=== PATIENT | male | born 1990 | race Caucasian/White ===

== ENCOUNTER 2022-05-15 11:44 | Emergency (ER) | payer OTHER ==
[~2022-05-15] VITALS: Ht 175.3 cm; Wt 90.7 kg
[2022-05-15 11:44] VITALS: BP_SYST 146
--- NOTE | 2022-05-15 11:44 | NUR ---
BROUGHT IMMEDIATELY BACK TO BED #1 AND TRIAGED. REPORT GIVEN TO KEISHA.
--- NOTE | 2022-05-15 11:45 | NUR ---
DR BOWEN AT BEDSIDE FOR EVALUATION
--- NOTE | 2022-05-15 11:58 | NUR ---
RECEIVED PT FROM [facility] NURSE. PT HAS L HAND, PALM AND 5TH DIGIT LACERATION CAUSED BY SKILL SAW. DR. BOWEN AT BEDSIDE. PT IS AAOX4. RESP E/U. VS WNL. PAIN 06/29, WILL BE MEDICATED PER DEC. IV CATH TO [facility]AC AC 2OG IN PLACE.
[2022-05-15] MEDS ORDERED: DIPHTH,PERTUSS(ACELL),TET VAC 0.5 ML VIAL (Tdap) I.M. ONE (12:00)
[2022-05-15] MEDS ORDERED: LIDOCAINE 2%, 20 ML MDV INJ ONE (12:00)
[2022-05-15] MEDS ORDERED: NACL 0.9% 1,000 ML IV ONE (12:00)
[2022-05-15] MEDS ORDERED: MORPHINE 4 MG INJ. 4 MG/ML VIAL IVP ONE ×4 (12:00→15:15)
[2022-05-15] MEDS ORDERED: AMPICILLIN SODIUM/SULBACTAM NA 3 GM VIAL IM ONE (12:00)
--- NOTE | 2022-05-15 12:10 | NUR ---
DR. BOWEN AT BEDSIDE EXAMINING CLEANED WOUND.
--- NOTE | 2022-05-15 12:20 | NUR ---
cxr obtained, morphine ivp give.
[2022-05-15] MEDS ORDERED: AMPICILLIN SODIUM/SULBACTAM NA 3 GM in NS 100 ML IV ONE (13:00)
[2022-05-15] MEDS ORDERED: AMPICILLIN SODIUM/SULBACTAM NA 3 GM VIAL ONE (13:12)
--- NOTE | 2022-05-15 13:21 | NUR ---
MORPHINE SCANNED TWICE BUT ONLY ONE DOSE GIVEN AT 1300.
[2022-05-15 13:49] LABS: BASOPHILS # (AUTO) 0.1 K/uL (0.0-0.2); BASOPHILS % (AUTO) 0.5 % (0.0-2.0); EOSINOPHILS % (AUTO) 0.2 % (0.0-4.0); HEMATOCRIT 40.9 % (36-54); HEMOGLOBIN 14.2 g/dL (14.0-18.0); LYMPHOCYTES # (AUTO) 1.1 K/uL (1.0-5.5); LYMPHOCYTES % (AUTO) 10.1 % (20.5-51.5); MEAN CORPUSCULAR HEMOGLOBIN 32 pg (27-31); MEAN CORPUSCULAR HGB CONC 35 % (32-36); MEAN CORPUSCULAR VOLUME 93 fL (79.0-98.0); MONOCYTES # (AUTO) 0.6 K/uL (0.0-1.0); MONOCYTES % (AUTO) 5.3 % (1.7-9.3); NEUTROPHILS # (AUTO) 9.5 K/uL (1.8-7.7); NEUTROPHILS % (AUTO) 83.9 % (40.0-70.0); PLATELET COUNT (AUTO) 269 K/uL (130-430); RED BLOOD CELL COUNT(AUTO) 4.39 MIL/uL (4.2-6.2); RED CELL DISTRIBUTION WIDTH 14.1 % (9.0-15.0); WHITE BLOOD COUNT (AUTO) 11.3 K/uL (4.8-10.8)
[2022-05-15 14:05] LABS: CALCIUM 8.5 mg/dL (8.4-11.0); CREATININE 0.75 mg/dL (0.55-1.30); POTASSIUM 3.5 mmol/L (3.5-5.1)
[2022-05-15 14:06] LABS: PROTHROMBIN TIME 10.4 SECS (9.5-12.5)
[2022-05-15 14:11] LABS: ALBUMIN 3.8 g/dL (3.4-4.8); TOTAL BILIRUBIN 0.4 mg/dL (0.0-1.0)
--- NOTE | 2022-05-15 14:24 | NUR ---
DR. PITTS AT BEDSIDE PERFORMING PROCEDURE TO L HAND.
--- NOTE | 2022-05-15 14:37 | NUR ---
DR. BOWEN COMPLETED PLACING SUTURES TO PT'S L HAND, 7 STICHES TO PALM AND 3 STICHES TO 4 TH DIGIT, SITE WAS CLEANSED WITH NS PATTED DRY, COVERED WITH ABDAPTICS AND KERLIX. PT EDUCATED TO KEEP ARM ELEVATED. DR. BOWEN STATED PT WILL SEE [facility]TH[facility] TOMORROW.
--- NOTE | 2022-05-15 14:40 | NUR ---
IV FLUID FINISHED AT 1440
[2022-05-15 15:00] LABS: ERYTHROCYTE SEDIMENTATION RATE 3 MM/HR (0-15)
[2022-05-15] MEDS ORDERED: CEPH250C PO (15:11)
[2022-05-15] MEDS ORDERED: IBUP-1971 PO (15:12)
[2022-05-15] MEDS ORDERED: HYDR-3927 PO (15:12)
[2022-05-15 15:35] VITALS: BP_SYST 131
--- NOTE | 2022-05-15 15:48 | NUR ---
Patient given written and verbal discharge instructions and verbalizes understanding. ER MD discussed with patient the results and treatment provided. Patient in stable condition. ID arm band removed. IV catheter removed intact and dressing applied, no active bleeding. Rx of ROCEPHIN PO, MOTRIN PO, HYDROCODON PO given. Patient educated on pain management and to follow up with PMD. Pain Scale 3/10. MEDICATED PRIOR TO DISCHARGE PER DEC. Opportunity for questions provided and answered. Medication side effect fact sheet provided.
== END 2022-05-15 15:48 | disposition home or self-care (01) ==
LOC: SED 11:44
DX: S61.412A Laceration without foreign body of left hand, initial encounter (principal); X58.XXXA Exposure to other specified factors, initial encounter; Y93.89 Activity, other specified; Y92.89 Other specified places as the place of occurrence of the external cause; Y99.8 Other external cause status
CPT/HCPCS: 99284; 96365; 96361; 96375; 80053; 85025; 85610; 85651; 36415; 73130; 90715; 90471; 12004; 96376; J0295; J2001; J2270; J7030